=== PATIENT | male | born 1950 | race African-American/Black ===

== ENCOUNTER 2017-05-31 14:45 | Inpatient (IN) | payer OTHER ==
[~2017-05-31] VITALS: Ht 172.7 cm; Wt 69.9 kg
[2017-05-31 15:30] VITALS: BP 145/81
[2017-05-31] MEDS ORDERED: DOCUSATE SODIUM 100MG CAPSULE PO PRN (17:30)
[2017-05-31] MEDS ORDERED: CYCLOBENZAPRINE 10MG TABLET PO PRN (17:30)
[2017-05-31] MEDS ORDERED: DIPHENHYDRAMINE 50MG CAPSULE PO PRN (17:30)
[2017-05-31] MEDS ORDERED: GUAIFENESIN 600MG ER TABLET PO PRN (17:30)
[2017-05-31] MEDS ORDERED: POLYETHYLENE GLYCOL 3350 (17GM) 1 DOSE PACK PO PRN (17:30)
[2017-05-31] MEDS ORDERED: MIDODRINE HCL 5MG TABLET PO SCH (17:30)
[2017-05-31] MEDS ORDERED: SIMETHICONE 80MG TABLET CHEW PO PRN (17:30)
[2017-05-31] MEDS ORDERED: POLYVINYL ALCOHOL OPHTH DROPS 15ML BOTHEYE PRN (17:45)
[2017-05-31 20:00] VITALS: BP 147/91
[2017-05-31] MEDS ORDERED: WARFARIN SODIUM 5MG TABLET PO NR (20:00)
[2017-05-31] MEDS: MIRTAZAPINE 15MG TABLET PO SCH (21:00)
[2017-05-31] MEDS: ATORVASTATIN CALCIUM 20MG TABLET PO SCH (21:58)
[2017-05-31] MEDS: VORICONAZOLE 200MG TABLET PO SCH (21:59)
[2017-05-31] MEDS: VITAMIN E ACETATE 400 UNITS CAPSULE PO SCH (21:59)
[2017-06-01] MEDS: IPRATROPIUM/ALBUTEROL 0.5-3(2.5)MG/3ML NEB HHN SCH ×3 (01:27→15:18)
[2017-06-01] MEDS: PANTOPRAZOLE 40MG DR TABLET PO SCH (06:05)
[2017-06-01] MEDS: METOCLOPRAMIDE 10MG/10 ML UDC PO SCH ×3 (06:05→17:00)
[2017-06-01 07:17] LABS: BASOPHILS % 0.2 % (0.0-2.0); EOSINOPHILS % 2.5 % (0.0-5.0); HEMATOCRIT. 29.2 % (42.0-52.0); HEMOGLOBIN. 9.6 g/dL (14.0-18.0); INR 2.2; LYMPHOCYTES % 8.4 % (20.0-50.0); MEAN CORPUSCULAR HEMOGLOBIN 32.4 pg (28.0-32.0); MEAN CORPUSCULAR VOLUME 98.4 fL (80.0-94.0); MEAN PLATELET VOLUME 8.2 fl (7.4-10.4); MONOCYTES % 8.2 % (2.0-8.0); NEUTROPHILS % 80.7 % (40.0-76.0); PLATELET 171 x1000/uL (130-400); PROTHROMBIN TIME 22.7 sec (9.4-11.6); RED BLOOD CELL COUNT 2.96 mill/uL (4.7-6.1); RED CELL DISTRIBUTION WIDTH 16.8 % (11.6-14.6)
[2017-06-01 07:47] LABS: CHLORIDE 106 mEq/L (98-107)
[2017-06-01 08:00] VITALS: BP 125/77
[2017-06-01] MEDS: FOLIC ACID/VITAMIN B COMP W-C TABLET PO SCH (08:56)
[2017-06-01] MEDS: VITAMIN E ACETATE 400 UNITS CAPSULE PO SCH ×2 (08:56→21:56)
[2017-06-01] MEDS: ZINC SULFATE 220 MG ( 50 ) CAPSULE PO SCH (08:57)
[2017-06-01] MEDS: VORICONAZOLE 200MG TABLET PO SCH ×2 (08:57→21:56)
[2017-06-01] MEDS: CYANOCOBALAMIN 100MCG TABLET PO SCH (08:57)
[2017-06-01] MEDS: PREDNISONE 5MG TABLET PO SCH (08:58)
[2017-06-01] MEDS ORDERED: CYCLOSPORINE 100MG CAPSULE PO SCH ×2 (09:00→17:00)
[2017-06-01] MEDS ORDERED: VANCOMYCIN HCL 1000 MG/20 ML ORAL PO SCH (09:00)
[2017-06-01] MEDS: SEVELAMER CARBONATE 800 MG TABLET PO SCH (17:01)
[2017-06-01] MEDS: ATOVAQUONE 750MG/5ML PACKET PO SCH (17:03)
[2017-06-01] MEDS ORDERED: CYCLOSPORINE, MODIFIED 25MG CAPSULE PO SCH (18:00)
[2017-06-01] MEDS: ATORVASTATIN CALCIUM 20MG TABLET PO SCH (21:54)
[2017-06-01] MEDS: MIRTAZAPINE 15MG TABLET PO SCH (21:55)
[2017-06-01] MEDS: VANCOMYCIN HCL 1000 MG/20 ML ORAL PO SCH (21:58)
[2017-06-02] MEDS: IPRATROPIUM/ALBUTEROL 0.5-3(2.5)MG/3ML NEB HHN SCH ×2 (01:03→07:28)
[2017-06-02 06:06] LABS: INR 2.3; PROTHROMBIN TIME 24.4 sec (9.4-11.6)
[2017-06-02 06:30] LABS: BASOPHILS % 0.8 % (0.0-2.0); HEMATOCRIT. 28.5 % (42.0-52.0); HEMOGLOBIN. 9.4 g/dL (14.0-18.0); LYMPHOCYTES % 7.9 % (20.0-50.0); MEAN CORPUSCULAR HEMOGLOBIN 32.6 pg (28.0-32.0); MEAN CORPUSCULAR VOLUME 98.9 fL (80.0-94.0); MEAN PLATELET VOLUME 8.3 fl (7.4-10.4); MONOCYTES % 8.1 % (2.0-8.0); NEUTROPHILS % 80.2 % (40.0-76.0); PLATELET 171 x1000/uL (130-400); RED BLOOD CELL COUNT 2.88 mill/uL (4.7-6.1); RED CELL DISTRIBUTION WIDTH 17.1 % (11.6-14.6)
[2017-06-02] MEDS: PANTOPRAZOLE 40MG DR TABLET PO SCH (06:31)
[2017-06-02] MEDS: METOCLOPRAMIDE 10MG/10 ML UDC PO SCH (06:32)
[2017-06-02 07:31] LABS: FOLIC ACID (FOLATE) SERUM >20 ng/mL ng/mL (>5.38)
[2017-06-02 07:42] LABS: VITAMIN B12 SERUM 1988 pg/mL (211-911)
[2017-06-02 08:00] VITALS: BP 133/79
[2017-06-02] MEDS ORDERED: CYCLOSPORINE, MODIFIED 25MG CAPSULE PO SCH (09:00)
[2017-06-02] MEDS: SEVELAMER CARBONATE 800 MG TABLET PO SCH (09:25)
[2017-06-02] MEDS: ZINC SULFATE 220 MG ( 50 ) CAPSULE PO SCH (09:26)
[2017-06-02] MEDS: PREDNISONE 5MG TABLET PO SCH (09:27)
[2017-06-02] MEDS: FOLIC ACID/VITAMIN B COMP W-C TABLET PO SCH (09:27)
[2017-06-02] MEDS: VITAMIN E ACETATE 400 UNITS CAPSULE PO SCH (09:28)
[2017-06-02] MEDS: CYANOCOBALAMIN 100MCG TABLET PO SCH (09:28)
[2017-06-02] MEDS: VORICONAZOLE 200MG TABLET PO SCH (09:28)
[2017-06-02] MEDS: ATOVAQUONE 750MG/5ML PACKET PO SCH (09:31)
[2017-06-02] MEDS: VANCOMYCIN HCL 1000 MG/20 ML ORAL PO SCH (09:32)
[2017-06-02] MEDS ORDERED: PHYTONADIONE 10MG/ML AMP SUBCUT NR (10:30)
[2017-06-02 10:48] LABS: FERRITIN 1254 ng/mL (22-322)
[2017-06-02] MEDS ORDERED: VALGANCICLOVIR HYDROCHLORIDE 450MG TABLET PO NR (11:00)
[2017-06-02] MEDS ORDERED: SODIUM CHLORIDE 0.9% 1,000 ML IV ONE (13:00)
[2017-06-02] MEDS ORDERED: LEVOTHYROXINE SODIUM 25MCG TABLET PO SCH (14:30)
[2017-06-02] MEDS ORDERED: MIDODRINE HCL 5MG TABLET PO SCH (14:30)
[2017-06-03] MEDS ORDERED: LIPA1CAP18 PO (06:10)
[2017-06-03] MEDS ORDERED: METO-293 PO (06:10)
[2017-06-03] MEDS ORDERED: DOCU-150 PO (06:10)
[2017-06-03] MEDS ORDERED: DIPH25CA83 PO (06:10)
[2017-06-03] MEDS ORDERED: ZINC220C6 PO (06:10)
[2017-06-03] MEDS ORDERED: POLY250017 PO (06:10)
[2017-06-03] MEDS ORDERED: EPOE40002 IJ (06:10)
[2017-06-03] MEDS ORDERED: PRAV20TA57 PO (06:10)
[2017-06-03] MEDS ORDERED: MIRT7.5T11 PO (06:10)
[2017-06-03] MEDS ORDERED: HYPR15DR4 OP (06:10)
[2017-06-03] MEDS ORDERED: SIME80TA15 PO (06:10)
[2017-06-03] MEDS ORDERED: CYCL25CA PO (06:10)
[2017-06-03] MEDS ORDERED: ATOV750O PO (06:10)
[2017-06-03] MEDS ORDERED: VANC125C4 PO (06:10)
[2017-06-03] MEDS ORDERED: PRED5TAB48 PO (06:10)
[2017-06-03] MEDS ORDERED: CYAN100086 PO (06:10)
[2017-06-03] MEDS ORDERED: PANT40TA4 PO (06:10)
[2017-06-03] MEDS ORDERED: [UNRECOGNIZED DRUG - CODE] PO (06:10)
[2017-06-03] MEDS ORDERED: NEPVIT PO (06:10)
[2017-06-03] MEDS ORDERED: BUME2TAB3 PO ×2 (06:10)
[2017-06-03] MEDS ORDERED: CYCL5TAB PO (06:10)
[2017-06-03] MEDS ORDERED: WARF-53 PO (06:10)
[2017-06-03] MEDS ORDERED: MIDO10TA PO (06:10)
[2017-06-06] MEDS ORDERED: VALGANCICLOVIR HYDROCHLORIDE 450MG TABLET PO SCH (09:00)
[2017-06-07 19:12] LABS: 25-HYDROXY VITAMIN D3 16 ng/mL (.)
[2017-06-08] MEDS ORDERED: VANCOMYCIN HCL 1000 MG/20 ML ORAL PO SCH (09:00)
[2017-06-23] MEDS ORDERED: VANCOMYCIN HCL 1000 MG/20 ML ORAL PO SCH (09:00)
== END 2017-06-02 16:13 | disposition short-term general hospital (02) | DRG 73 ==
PROVIDERS: ADMIT Physical Medicine & Rehabilitation Spinal Cord Injury Medicine; ATTEND Family Medicine Adult Medicine
PROC: 0DP6XUZ Removal of Feeding Device from Stomach, External Approach (ICD-10-PCS; principal; 2017-06-01)
DX: G62.81 Critical illness polyneuropathy (principal); G93.40 Encephalopathy, unspecified; N17.0 Acute kidney failure with tubular necrosis; E43 Unspecified severe protein-calorie malnutrition; J86.9 Pyothorax without fistula; J15.1 Pneumonia due to Pseudomonas; A41.9 Sepsis, unspecified organism; A04.72 Enterocolitis due to Clostridium difficile, not specified as recurrent; I82.403 Acute embolism and thrombosis of unspecified deep veins of lower extremity, bilateral; I82.629 Acute embolism and thrombosis of deep veins of unspecified upper extremity; J94.2 Hemothorax; I42.9 Cardiomyopathy, unspecified; B37.81 Candidal esophagitis; Z94.1 Heart transplant status; C91.11 Chronic lymphocytic leukemia of B-cell type in remission; G81.91 Hemiplegia, unspecified affecting right dominant side; I42.5 Other restrictive cardiomyopathy; J90 Pleural effusion, not elsewhere classified; E85.9 Amyloidosis, unspecified; N39.0 Urinary tract infection, site not specified; R64 Cachexia; N18.3 Chronic kidney disease, stage 3 (moderate); I48.91 Unspecified atrial fibrillation; R53.81 Other malaise; R13.12 Dysphagia, oropharyngeal phase; I12.9 Hypertensive chronic kidney disease with stage 1 through stage 4 chronic kidney disease, or unspecified chronic kidney disease; D75.82 Heparin induced thrombocytopenia (HIT); D64.9 Anemia, unspecified; I27.20 Pulmonary hypertension, unspecified; I95.1 Orthostatic hypotension; Z92.21 Personal history of antineoplastic chemotherapy; Z86.73 Personal history of transient ischemic attack (TIA), and cerebral infarction without residual deficits; Z88.8 Allergy status to other drugs, medicaments and biological substances
CPT/HCPCS: 36415; 71045; 80048; 80053; 80061; 82306; 82550; 82553; 82607; 82728; 82746; 83540; 83550; 83735; 84100; 84443; 84630; 85025; 85379; 85610; 92523; 93005; 93970; 93971; 94640; 97110; 97162; 97166; 97530; 97535; J3370; J3430; J7030; J7512; J7515; J7620; J8597; Q0163

== ENCOUNTER 2017-10-14 16:56 | Inpatient (IN) | payer OTHER ==
[~2017-10-14] VITALS: Ht 175.3 cm; Wt 67.3 kg
[~2017-10-14 16:56] MED LIST: ATOV750O PO; CYCL25CA PO; MIDO10TA PO; PRED5TAB48 PO; ZINC220C6 PO
[2017-10-14] MEDS ORDERED: PIPERACILLIN/TAZ 3.375G PREMIX 50 ML IV ONE (18:30)
[2017-10-14] MEDS ORDERED: VANCOMYCIN 1 G PREMIX 200 ML IV ONE (18:30)
[2017-10-14 19:27] LABS: HEMOGLOBIN. 9.4 g/dL (14.0-18.0); MEAN CORPUSCULAR VOLUME 101.3 fL (80.0-94.0); MEAN PLATELET VOLUME 7.6 fl (7.4-10.4); PLATELET 123 x1000/uL (130-400); RED BLOOD CELL COUNT 2.77 mill/uL (4.7-6.1); RED CELL DISTRIBUTION WIDTH 16.3 % (11.6-14.6)
[2017-10-14 19:33] LABS: INR 1.1; PROTHROMBIN TIME 10.8 sec (9.1-11.1)
[2017-10-14 19:35] LABS: CHLORIDE 105 mEq/L (98-107)
[2017-10-14 21:27] LABS: PLATELET ESTIMATE SLIGHTLY DECREASED
[2017-10-14] MEDS ORDERED: ATORVASTATIN CALCIUM 10MG TABLET PO NR (22:45)
[2017-10-14] MEDS ORDERED: OLANZAPINE 2.5MG TABLET PO NR (22:45)
[2017-10-14] MEDS ORDERED: CYCLOSPORINE, MODIFIED 25MG CAPSULE PO NR (23:15)
[2017-10-15 05:11] LABS: BASOPHILS % 2.7 % (0.0-2.0); EOSINOPHILS % 0.6 % (0.0-5.0); HEMATOCRIT. 28.7 % (42.0-52.0); HEMOGLOBIN. 9.6 g/dL (14.0-18.0); LYMPHOCYTES % 28.1 % (20.0-50.0); MEAN CORPUSCULAR HEMOGLOBIN 33.9 pg (28.0-32.0); MEAN PLATELET VOLUME 8.3 fl (7.4-10.4); MONOCYTES % 9.2 % (2.0-8.0); NEUTROPHILS % 59.4 % (40.0-76.0); PLATELET 135 x1000/uL (130-400); RED BLOOD CELL COUNT 2.84 mill/uL (4.7-6.1)
[2017-10-15] MEDS ORDERED: OLAN2.5T29 PO (05:59)
[2017-10-15] MEDS ORDERED: MIDO5TAB PO (05:59)
[2017-10-15] MEDS ORDERED: PRED5TAB PO (05:59)
[2017-10-15] MEDS ORDERED: NEPVIT PO (05:59)
[2017-10-15] MEDS ORDERED: VALG450T3 PO (05:59)
[2017-10-15] MEDS ORDERED: PRAV20TA57 PO (05:59)
[2017-10-15] MEDS ORDERED: CYCL50CA6 PO (05:59)
[2017-10-15 06:23] VITALS: BP 135/87
[2017-10-15 08:08] VITALS: BP 151/94
[2017-10-15 10:34] VITALS: BP 151/94
[2017-10-15] MEDS ORDERED: CYCLOSPORINE, MODIFIED 25MG CAPSULE PO SCH (12:30)
[2017-10-15 12:40] VITALS: BP 123/83
[2017-10-15] MEDS ORDERED: CYCL50CA6 MT (12:41)
[2017-10-15] MEDS ORDERED: CYCL25CA MT (12:41)
[2017-10-15] MEDS ORDERED: PIPERACILLIN/TAZ 2.25G PREMIX 50 ML IV SCH (14:15)
[2017-10-15] MEDS: FOLIC ACID/VITAMIN B COMP W-C TABLET PO SCH (15:20)
[2017-10-15] MEDS: ATOVAQUONE 750MG/5ML PACKET PO SCH (15:21)
[2017-10-15] MEDS: ZINC SULFATE 220 MG ( 50 ) CAPSULE PO SCH (15:21)
[2017-10-15] MEDS: PREDNISONE 5MG TABLET PO SCH (15:21)
[2017-10-15 15:53] VITALS: BP 129/93
[2017-10-15 19:51] VITALS: BP 105/73
[2017-10-15] MEDS: PIPERACILLIN/TAZ 2.25G PREMIX 50 ML IV SCH (20:02)
[2017-10-15] MEDS ORDERED: VANCOMYCIN 750 MG PREMIX 150 ML IV SCH (21:00)
[2017-10-15] MEDS: ATORVASTATIN CALCIUM 20MG TABLET PO SCH (21:06)
[2017-10-15] MEDS: CYCLOSPORINE, MODIFIED 25MG CAPSULE PO SCH (21:35)
[2017-10-16 00:06] VITALS: BP 124/82
[2017-10-16 04:00] VITALS: BP 129/77
[2017-10-16 05:32] LABS: HEMATOCRIT. 29.2 % (42.0-52.0); HEMOGLOBIN. 10.1 g/dL (14.0-18.0); MEAN CORPUSCULAR HEMOGLOBIN 34.7 pg (28.0-32.0); MEAN CORPUSCULAR VOLUME 100.7 fL (80.0-94.0); PLATELET 152 x1000/uL (130-400)
[2017-10-16 08:00] VITALS: BP 140/95
[2017-10-16] MEDS ORDERED: CYCLOSPORINE 100MG CAPSULE PO SCH (09:00)
[2017-10-16] MEDS: ATOVAQUONE 750MG/5ML PACKET PO SCH (09:15)
[2017-10-16] MEDS: PIPERACILLIN/TAZ 2.25G PREMIX 50 ML IV SCH ×2 (09:15→20:59)
[2017-10-16] MEDS: PREDNISONE 5MG TABLET PO SCH (09:16)
[2017-10-16] MEDS: FOLIC ACID/VITAMIN B COMP W-C TABLET PO SCH (09:16)
[2017-10-16] MEDS: ZINC SULFATE 220 MG ( 50 ) CAPSULE PO SCH (09:16)
[2017-10-16] MEDS: CYCLOSPORINE, MODIFIED 25MG CAPSULE PO SCH ×2 (10:33→20:54)
[2017-10-16 11:47] VITALS: BP 156/97
[2017-10-16] MEDS ORDERED: GENTAMICIN 120MG PREMIX 100 ML IV SCH (12:00)
[2017-10-16 12:57] LABS: CLARITY URINE TURBID (CLEAR); KETONES URINE NEGATIVE (NEGATIVE); LEUKOCYTE ESTERASE URINE 3+ (NEGATIVE); NITRITE URINE NEGATIVE (NEGATIVE); OCCULT BLOOD URINE 2+ (NEGATIVE); PH URINE 7.5 (4.5-8.0); PROTEIN URINE 3+ (NEGATIVE); SPECIFIC GRAVITY URINE 1.012 (1.005-1.030); UROBILINOGEN URINE 0.2 E.U./dL (0.2-1.0)
[2017-10-16 12:58] LABS: COLOR URINE YELLOW (YELLOW)
[2017-10-16 15:31] VITALS: BP 133/91
[2017-10-16 16:42] LABS: PLATELET ESTIMATE NORMAL
[2017-10-16 19:57] VITALS: BP 110/77
[2017-10-16] MEDS: ATORVASTATIN CALCIUM 20MG TABLET PO SCH (20:53)
[2017-10-17] VITALS: BP 121/80
[2017-10-17 04:12] VITALS: BP 120/83
[2017-10-17] MEDS: PIPERACILLIN/TAZ 2.25G PREMIX 50 ML IV SCH (06:32)
[2017-10-17 08:05] VITALS: BP 131/90
[2017-10-17] MEDS: PREDNISONE 5MG TABLET PO SCH (08:06)
[2017-10-17] MEDS: ZINC SULFATE 220 MG ( 50 ) CAPSULE PO SCH (08:06)
[2017-10-17] MEDS: MIDODRINE HCL 5MG TABLET PO SCH (08:07)
[2017-10-17] MEDS: FOLIC ACID/VITAMIN B COMP W-C TABLET PO SCH (08:07)
[2017-10-17] MEDS: CYCLOSPORINE, MODIFIED 25MG CAPSULE PO SCH ×2 (08:07→21:27)
[2017-10-17] MEDS: ATOVAQUONE 750MG/5ML PACKET PO SCH (08:08)
[2017-10-17 08:16] LABS: HEMATOCRIT. 30.2 % (42.0-52.0); HEMOGLOBIN. 10.2 g/dL (14.0-18.0); MEAN CORPUSCULAR HEMOGLOBIN 34.1 pg (28.0-32.0); MEAN CORPUSCULAR VOLUME 100.5 fL (80.0-94.0); PLATELET 158 x1000/uL (130-400); RED CELL DISTRIBUTION WIDTH 15.8 % (11.6-14.6)
[2017-10-17 08:51] LABS: GENTAMICIN RANDOM 1.6 ug/mL
[2017-10-17 12:50] VITALS: BP 152/104
[2017-10-17 13:36] LABS: ATYPICAL LYMPHOCYTES 1; NUCLEATED RED BLOOD CELLS 1 /100 WBC
[2017-10-17 13:37] LABS: PLATELET ESTIMATE NORMAL
[2017-10-17] MEDS ORDERED: LIDOCAINE HCL 1% 10 MG/ML 10ML VIAL ONE (14:16)
[2017-10-17] MEDS ORDERED: GENTAMICIN 120MG PREMIX 100 ML IV SCH (15:00)
[2017-10-17] MEDS: CEFEPIME 2,000 MG in DEXT 5% WATER 100 ML IV SCH (17:00)
[2017-10-17 17:01] VITALS: BP 124/87
[2017-10-17 20:00] VITALS: BP 111/76
[2017-10-17] MEDS: ATORVASTATIN CALCIUM 20MG TABLET PO SCH (21:27)
[2017-10-18 00:53] VITALS: BP 121/70
[2017-10-18 04:00] VITALS: BP 133/77
[2017-10-18 06:33] LABS: HEMATOCRIT. 28.7 % (42.0-52.0); HEMOGLOBIN. 9.8 g/dL (14.0-18.0); MEAN CORPUSCULAR HEMOGLOBIN 34.4 pg (28.0-32.0); MEAN CORPUSCULAR VOLUME 100.3 fL (80.0-94.0); MEAN PLATELET VOLUME 8.1 fl (7.4-10.4); PLATELET 145 x1000/uL (130-400); RED BLOOD CELL COUNT 2.86 mill/uL (4.7-6.1); RED CELL DISTRIBUTION WIDTH 15.9 % (11.6-14.6)
[2017-10-18 08:00] VITALS: BP 136/79
[2017-10-18] MEDS: PREDNISONE 5MG TABLET PO SCH (08:26)
[2017-10-18] MEDS: ZINC SULFATE 220 MG ( 50 ) CAPSULE PO SCH (08:26)
[2017-10-18] MEDS: CYCLOSPORINE, MODIFIED 25MG CAPSULE PO SCH ×2 (08:26→21:51)
[2017-10-18] MEDS: FOLIC ACID/VITAMIN B COMP W-C TABLET PO SCH (08:26)
[2017-10-18] MEDS: ATOVAQUONE 750MG/5ML PACKET PO SCH (08:27)
[2017-10-18 10:29] LABS: PLATELET ESTIMATE NORMAL
[2017-10-18 12:00] VITALS: BP 126/90
[2017-10-18] MEDS: CEFEPIME 2,000 MG in DEXT 5% WATER 100 ML IV SCH (14:50)
[2017-10-18 16:00] VITALS: BP 133/92
[2017-10-18 20:12] VITALS: BP 126/85
[2017-10-18] MEDS: CARVEDILOL 3.125 MG TABLET PO SCH (21:00)
[2017-10-18] MEDS: ATORVASTATIN CALCIUM 20MG TABLET PO SCH (21:51)
[2017-10-19] VITALS (17 sets, daily range): BP systolic 122–159; BP diastolic 78–100
[2017-10-19 06:21] LABS: INR 1.1; PARTIAL THROMBOPLASTIN TIME 28.1 sec (23.4-31.0); PROTHROMBIN TIME 11.2 sec (9.1-11.1)
[2017-10-19 06:35] LABS: HEMATOCRIT. 27.7 % (42.0-52.0); HEMOGLOBIN. 9.4 g/dL (14.0-18.0); MEAN CORPUSCULAR HEMOGLOBIN 34.3 pg (28.0-32.0); MEAN CORPUSCULAR VOLUME 100.8 fL (80.0-94.0); MEAN PLATELET VOLUME 8.2 fl (7.4-10.4); PLATELET 150 x1000/uL (130-400); RED BLOOD CELL COUNT 2.75 mill/uL (4.7-6.1); RED CELL DISTRIBUTION WIDTH 15.5 % (11.6-14.6)
[2017-10-19] MEDS ORDERED: LIDOCAINE HCL 1% 10 MG/ML 10ML VIAL ONE (07:31)
[2017-10-19] MEDS ORDERED: LIDOCAINE HCL/EPINEPHRINE 1%-EPI 1:100,000 20 ML VIAL ONE (07:31)
[2017-10-19] MEDS ORDERED: SODIUM BICARBONATE 4% (2.4MEQ) 5ML VIAL IV ONE (07:31)
[2017-10-19] MEDS ORDERED: HEPARIN 1000 UNITS/ML 10ML ONE (07:32)
[2017-10-19] MEDS ORDERED: FENTANYL CITRATE/PF 50MCG/ML 2ML VIAL IV ONE (08:30)
[2017-10-19] MEDS: CARVEDILOL 3.125 MG TABLET PO SCH (09:00)
[2017-10-19] MEDS ORDERED: FENTANYL CITRATE/PF 50MCG/ML 2ML VIAL ONE (09:01)
[2017-10-19] MEDS: CYCLOSPORINE, MODIFIED 25MG CAPSULE PO SCH (09:33)
[2017-10-19] MEDS: FOLIC ACID/VITAMIN B COMP W-C TABLET PO SCH (09:33)
[2017-10-19] MEDS: PREDNISONE 5MG TABLET PO SCH (09:34)
[2017-10-19] MEDS: ZINC SULFATE 220 MG ( 50 ) CAPSULE PO SCH (09:35)
[2017-10-19] MEDS: ATOVAQUONE 750MG/5ML PACKET PO SCH (09:39)
[2017-10-19] MEDS: MIDODRINE HCL 5MG TABLET PO SCH (09:45)
[2017-10-19 09:55] LABS: NUCLEATED RED BLOOD CELLS 1 /100 WBC; PLATELET ESTIMATE NORMAL
[2017-10-19] MEDS ORDERED: VALGANCICLOVIR HYDROCHLORIDE 450MG TABLET PO SCH (21:00)
== END 2017-10-19 12:55 | disposition home or self-care (01) | DRG 871 ==
LOC: ER 18:31 → EDBEDREQ 20:14 → 6WST 20:14 → EDBEDREQTM 20:14 → EDBEDREQ 20:17 → ENRESERV 10-15 04:46
PROVIDERS: ADMIT Family Medicine Adult Medicine; ATTEND Family Medicine Adult Medicine
PROC: 5A1D70Z Performance of Urinary Filtration, Intermittent, Less than 6 Hours Per Day (ICD-10-PCS; 2017-10-15)
PROC: 5A1D70Z Performance of Urinary Filtration, Intermittent, Less than 6 Hours Per Day (ICD-10-PCS; 2017-10-16)
PROC: 0JPT3XZ Removal of Tunneled Vascular Access Device from Trunk Subcutaneous Tissue and Fascia, Percutaneous Approach (ICD-10-PCS; principal; 2017-10-17)
PROC: 05PYX3Z Removal of Infusion Device from Upper Vein, External Approach (ICD-10-PCS; 2017-10-17)
PROC: 5A1D70Z Performance of Urinary Filtration, Intermittent, Less than 6 Hours Per Day (ICD-10-PCS; 2017-10-18)
PROC: 0JH63XZ Insertion of Tunneled Vascular Access Device into Chest Subcutaneous Tissue and Fascia, Percutaneous Approach (ICD-10-PCS; 2017-10-19)
PROC: 02HV33Z Insertion of Infusion Device into Superior Vena Cava, Percutaneous Approach (ICD-10-PCS; 2017-10-19)
PROC: B5181ZA Fluoroscopy of Superior Vena Cava using Low Osmolar Contrast, Guidance (ICD-10-PCS; 2017-10-19)
PROC: B548ZZA Ultrasonography of Superior Vena Cava, Guidance (ICD-10-PCS; 2017-10-19)
PROC: B5141ZZ Fluoroscopy of Left Jugular Veins using Low Osmolar Contrast (ICD-10-PCS; 2017-10-19)
DX: A41.52 Sepsis due to Pseudomonas (principal); N18.6 End stage renal disease; E43 Unspecified severe protein-calorie malnutrition; I50.23 Acute on chronic systolic (congestive) heart failure; I13.2 Hypertensive heart and chronic kidney disease with heart failure and with stage 5 chronic kidney disease, or end stage renal disease; J98.11 Atelectasis; I42.9 Cardiomyopathy, unspecified; Z94.1 Heart transplant status; I27.20 Pulmonary hypertension, unspecified; D64.9 Anemia, unspecified; D69.6 Thrombocytopenia, unspecified; D70.9 Neutropenia, unspecified; E11.22 Type 2 diabetes mellitus with diabetic chronic kidney disease; E78.5 Hyperlipidemia, unspecified; G62.0 Drug-induced polyneuropathy; I48.91 Unspecified atrial fibrillation; I49.3 Ventricular premature depolarization; M77.9 Enthesopathy, unspecified; T45.1X5A Adverse effect of antineoplastic and immunosuppressive drugs, initial encounter; Z99.2 Dependence on renal dialysis; Y92.89 Other specified places as the place of occurrence of the external cause; Z85.6 Personal history of leukemia; Z86.718 Personal history of other venous thrombosis and embolism; Z86.73 Personal history of transient ischemic attack (TIA), and cerebral infarction without residual deficits; Z68.21 Body mass index [BMI] 21.0-21.9, adult; Z88.1 Allergy status to other antibiotic agents; Z88.8 Allergy status to other drugs, medicaments and biological substances; Z79.899 Other long term (current) drug therapy
CPT/HCPCS: 36415; 36558; 36589; 71045; 75827; 76937; 77001; 80048; 80053; 80061; 80170; 81003; 83605; 83735; 84145; 84443; 85025; 85610; 85730; 87040; 87070; 87077; 87086; 87186; 93005; 93306; 93970; 99152; 99153; 99285; C1750; C1769; J0692; J1580; J1644; J2543; J3010; J3370; J3490; J7030; J7050; J7060; J7512; J7515